=== PATIENT | female | born 1965 | race Caucasian/White ===

== ENCOUNTER 2022-04-24 08:11 | Day surgery (SDC) | payer MEDICAID, OTHER ==
[~2022-04-24 08:11] MED LIST: Midazolam 1 MG/ML 2 ML SDV ONE; Propofol 200 MG/20 ML SDV ONE; fentaNYL 100 MCG/2 ML SDV ONE
[2022-04-24] MEDS: Sodium Chloride 0.9% 1,000 ML IV SCH (08:56)
[2022-04-24 10:31] VITALS: BP 111/61; PULSE 55
== END 2022-04-24 10:30 ==
LOC: JP.SDS 08:11
PROVIDERS: ATTEND Surgery
DX: Z12.11 Encounter for screening for malignant neoplasm of colon (principal); K57.30 Diverticulosis of large intestine without perforation or abscess without bleeding; K63.5 Polyp of colon; E66.9 Obesity, unspecified; E03.9 Hypothyroidism, unspecified; F17.200 Nicotine dependence, unspecified, uncomplicated; Z68.28 Body mass index [BMI] 28.0-28.9, adult; Z88.0 Allergy status to penicillin; Z88.2 Allergy status to sulfonamides; Z88.6 Allergy status to analgesic agent; Z88.1 Allergy status to other antibiotic agents; Z79.899 Other long term (current) drug therapy
CPT/HCPCS: 88305; J2250; J2704; J3010; J7030

== ENCOUNTER 2022-11-03 12:17 | Emergency (ER) | payer OTHER ==
[2022-11-03 12:40] VITALS: BP 124/71; PULSE 99
[2022-11-03 14:29] LABS: ESTIMATED GFR 102 mL/min (>60)
[2022-11-03] MEDS ORDERED: Sodium Chloride 0.9% 10 ML Syringe FLUSH PRN (14:41)
[2022-11-03] MEDS ORDERED: Iopamidol 612 MG/ML 100 ML Bottle IV ONE (14:57)
[2022-11-03] MEDS ORDERED: Sodium Chloride 0.9% 50 ML IV SCH (15:00)
== END 2022-11-03 16:42 | disposition home or self-care (01) ==
LOC: JP.ED 12:17
DX: R10.11 Right upper quadrant pain (principal); R19.7 Diarrhea, unspecified; E03.9 Hypothyroidism, unspecified; F17.210 Nicotine dependence, cigarettes, uncomplicated; Z88.0 Allergy status to penicillin; Z88.1 Allergy status to other antibiotic agents; Z88.6 Allergy status to analgesic agent; Z88.2 Allergy status to sulfonamides; Z88.8 Allergy status to other drugs, medicaments and biological substances; Z79.899 Other long term (current) drug therapy; Z86.16 Personal history of COVID-19
CPT/HCPCS: 36415; 74177; 80053; 81001; 83690; 85025; 86140; 99284; J3490; Q9967